=== PATIENT | male | born 1955 | race Caucasian/White ===

== ENCOUNTER 2019-02-13 16:05 | Inpatient (IN) | payer MEDICARE, OTHER ==
[~2019-02-13] VITALS: Ht 162.6 cm; Wt 59.0 kg
[2019-02-13] MEDS ORDERED: ACETAMINOPHEN ES 500 MG TABLET ONE (17:21)
[2019-02-13] MEDS ORDERED: ACETAMINOPHEN ES 500 MG TABLET PO ONE (17:30)
[2019-02-13 17:45] VITALS: BP 150/94
[2019-02-13] MEDS ORDERED: BLOOD SUGAR DIAGNOSTIC 1 EACH STRIP VI ONE (18:15)
[2019-02-13] MEDS ORDERED: INFLUENZA VACCINE 2019-2020 0.5 ML DISP.SYRIN IM ONE (19:00)
[2019-02-13] MEDS ORDERED: PNEUMOCOCCAL 23-VAL P-SAC VAC 0.5 ML VIAL IM ONE (19:00)
[2019-02-13 20:06] VITALS: BP 162/98
[2019-02-13] MEDS: LORAZEPAM 0.5 MG TABLET PO PRN (20:37)
[2019-02-13] MEDS ORDERED: MAGNESIUM HYDROXIDE 30 ML LIQUID UDC PO PRN (20:45)
[2019-02-13] MEDS ORDERED: ACETAMINOPHEN 650 MG/20.3 ML LIQUID UDC GT PRN (20:45)
[2019-02-13 22:07] VITALS: BP 131/72
[2019-02-14] MEDS: LORAZEPAM 0.5 MG TABLET PO PRN (04:02)
[2019-02-14] MEDS: ACETAMINOPHEN 325 MG TABLET PO PRN ×3 (04:02→21:09)
[2019-02-14 07:41] LABS: CREATININE 0.9 mg/dL (0.6-1.3); POTASSIUM 3.7 mmol/L (3.5-5.1); TOTAL PROTEIN, SERUM 7.4 g/dL (6.4-8.2)
[2019-02-14 07:54] VITALS: BP 120/75
[2019-02-14] MEDS ORDERED: NICOTINE 21 MG/24HR PATCH TD SCH (09:00)
[2019-02-14] MEDS: NICOTINE 14 MG/24HR PATCH TD SCH ×2 (10:28→10:32)
[2019-02-14] MEDS ORDERED: SERTRALINE HCL 50 MG TABLET PO SCH (13:00)
[2019-02-14] MEDS: risperiDONE 0.25 MG TABLET PO SCH ×2 (14:04→17:28)
[2019-02-14] MEDS: GABAPENTIN 100 MG CAPSULE PO SCH ×2 (14:04→17:28)
[2019-02-14] MEDS ORDERED: OLANZAPINE 10 MG VIAL IM ONE (14:45)
[2019-02-14 17:21] VITALS: BP 115/68
[2019-02-14 20:34] VITALS: BP 139/76
[2019-02-14] MEDS: TEMAZEPAM 7.5 MG CAPSULE PO PRN (21:09)
[2019-02-15] MEDS: LORAZEPAM 0.5 MG TABLET PO PRN ×2 (03:27→20:30)
[2019-02-15] MEDS: ACETAMINOPHEN 325 MG TABLET PO PRN (03:27)
[2019-02-15 07:30] VITALS: BP 135/69
[2019-02-15 07:52] LABS: BILIRUBIN,DIRECT 0.2 mg/dL (0.0-0.2); BILIRUBIN,TOTAL 0.6 mg/dL (0.2-1.0); TOTAL PROTEIN, SERUM 6.9 g/dL (6.4-8.2)
[2019-02-15 08:00] LABS: THYROID STIMULATING HORMONE 1.244 mIU/mL (0.358-3.740)
[2019-02-15] MEDS: GABAPENTIN 100 MG CAPSULE PO SCH (09:13)
[2019-02-15] MEDS: risperiDONE 0.25 MG TABLET PO SCH ×3 (09:13→16:42)
[2019-02-15] MEDS: NICOTINE 14 MG/24HR PATCH TD SCH (09:16)
[2019-02-15] MEDS: GABAPENTIN 300 MG CAPSULE PO SCH ×2 (12:50→16:42)
[2019-02-15] MEDS ORDERED: GABAPENTIN 100 MG CAPSULE PO SCH (13:00)
[2019-02-15 15:56] VITALS: BP 136/76
[2019-02-15] MEDS: HYDROCODONE/APAP 5-325MG TABLET PO PRN (18:17)
[2019-02-15 20:15] VITALS: BP 135/81
[2019-02-15] MEDS: TEMAZEPAM 7.5 MG CAPSULE PO PRN (21:38)
[2019-02-16 07:30] VITALS: BP 126/91
[2019-02-16 08:07] LABS: *BILIRUBIN,URIN NEGATIVE (NEGATIVE); *BLOOD, URINE 2+ (NEGATIVE); *CLARITY,URINE CLEAR (CLEAR); *COLOR,URINE YELLOW (YELLOW); *KETONES,URINE NEGATIVE (NEGATIVE); *UROBILINOGEN,URINE 0.2 E.U./dl (NORMAL); LEUKOCYTE ESTERASE ,URINE NEGATIVE (NEGATIVE); NITRITE, URINE NEGATIVE (NEGATIVE); PH,URINE 5.5 (5.0-8.0); UGLUCOSE NEGATIVE (NEGATIVE)
[2019-02-16 08:18] LABS: BACTERIA,URINE NONE SEEN /HPF (NONE SEEN); SQUAMOUS EPITHELIAL CELL,UR FEW /HPF (NONE SEEN); WBC,URINE NONE SEEN /HPF (0-3)
[2019-02-16] MEDS: GABAPENTIN 300 MG CAPSULE PO SCH ×3 (08:45→16:30)
[2019-02-16] MEDS: risperiDONE 0.25 MG TABLET PO SCH ×3 (08:45→16:30)
[2019-02-16] MEDS: NICOTINE 14 MG/24HR PATCH TD SCH (08:49)
[2019-02-16 16:56] VITALS: BP 132/81
[2019-02-16 20:15] VITALS: BP 135/84
[2019-02-16] MEDS: TEMAZEPAM 7.5 MG CAPSULE PO PRN (22:27)
[2019-02-17] MEDS: LORAZEPAM 0.5 MG TABLET PO PRN (03:22)
[2019-02-17 07:30] VITALS: BP 140/80
[2019-02-17] MEDS: NICOTINE 14 MG/24HR PATCH TD SCH (08:20)
[2019-02-17] MEDS: GABAPENTIN 300 MG CAPSULE PO SCH ×3 (08:20→16:27)
[2019-02-17] MEDS: risperiDONE 0.5 MG TABLET PO SCH ×3 (08:20→16:27)
[2019-02-17] MEDS ORDERED: risperiDONE 0.25 MG TABLET PO SCH (09:00)
[2019-02-17 16:06] VITALS: BP 148/88
[2019-02-17 20:00] VITALS: BP 148/88
[2019-02-17] MEDS: TEMAZEPAM 7.5 MG CAPSULE PO PRN (21:32)
[2019-02-17] MEDS: ACETAMINOPHEN 325 MG TABLET PO PRN (21:32)
[2019-02-18] MEDS: LORAZEPAM 0.5 MG TABLET PO PRN (01:21)
[2019-02-18 08:06] VITALS: BP 150/88
[2019-02-18] MEDS: GABAPENTIN 300 MG CAPSULE PO SCH ×3 (08:31→16:46)
[2019-02-18] MEDS: risperiDONE 0.5 MG TABLET PO SCH ×3 (08:31→16:46)
[2019-02-18] MEDS: NICOTINE 21 MG/24HR PATCH TD SCH (08:32)
[2019-02-18] MEDS ORDERED: NICOTINE 14 MG/24HR PATCH TD SCH (09:00)
[2019-02-18] MEDS: MAG HYDROX/AL HYDROX/SIMETH 30 ML LIQUID UDC PO PRN (15:29)
[2019-02-18 15:56] VITALS: BP 156/86
[2019-02-18 20:00] VITALS: BP 123/84
[2019-02-18] MEDS: TEMAZEPAM 7.5 MG CAPSULE PO PRN (20:58)
[2019-02-18] MEDS: ACETAMINOPHEN 325 MG TABLET PO PRN (20:59)
[2019-02-19 07:30] VITALS: BP 147/79
[2019-02-19] MEDS: GABAPENTIN 300 MG CAPSULE PO SCH ×3 (08:56→16:08)
[2019-02-19] MEDS: NICOTINE 21 MG/24HR PATCH TD SCH (08:56)
[2019-02-19] MEDS: risperiDONE 0.5 MG TABLET PO SCH ×3 (08:56→16:08)
[2019-02-19 16:00] VITALS: BP 138/87
[2019-02-19] MEDS: HYDROCODONE/APAP 5-325MG TABLET PO PRN (19:45)
[2019-02-19 20:23] VITALS: BP 146/85
[2019-02-19] MEDS: TEMAZEPAM 7.5 MG CAPSULE PO PRN (22:54)
[2019-02-20 07:30] VITALS: BP 150/92
[2019-02-20] MEDS: GABAPENTIN 300 MG CAPSULE PO SCH ×3 (08:19→16:04)
[2019-02-20] MEDS: risperiDONE 0.5 MG TABLET PO SCH ×3 (08:19→16:04)
[2019-02-20] MEDS: NICOTINE 21 MG/24HR PATCH TD SCH (08:19)
[2019-02-20 09:09] LABS: ALANINE AMINOTRANSFERASE 87 U/L (16-63); ALKALINE PHOSPHATASE 133 U/L (50-136); ASPARTATE AMINOTRANSFERASE 60 U/L (15-37); BILIRUBIN,TOTAL 0.9 mg/dL (0.2-1.0); CARBON DIOXIDE 28 mmol/L (21-32); CHLORIDE 104 mmol/L (98-107); CREATININE 0.6 mg/dL (0.6-1.3); GLUCOSE 87 mg/dL (74-106); POTASSIUM 3.8 mmol/L (3.5-5.1); TOTAL PROTEIN, SERUM 7.8 g/dL (6.4-8.2); UREA NITROGEN, BLOOD 11 mg/dL (7-18)
[2019-02-20] MEDS: ACETAMINOPHEN 325 MG TABLET PO PRN (15:51)
[2019-02-20 15:54] VITALS: BP 131/80
[2019-02-20 20:49] VITALS: BP 116/79
[2019-02-20] MEDS: HYDROCODONE/APAP 5-325MG TABLET PO PRN (23:00)
[2019-02-21] MEDS: MAG HYDROX/AL HYDROX/SIMETH 30 ML LIQUID UDC PO PRN (02:10)
[2019-02-21 08:04] VITALS: BP 155/79
[2019-02-21] MEDS: GABAPENTIN 300 MG CAPSULE PO SCH ×3 (08:11→16:57)
[2019-02-21] MEDS: NICOTINE 21 MG/24HR PATCH TD SCH (08:11)
[2019-02-21] MEDS: risperiDONE 0.5 MG TABLET PO SCH ×3 (08:12→16:57)
[2019-02-21 10:07] LABS: *BILIRUBIN,URIN NEGATIVE (NEGATIVE); *CLARITY,URINE CLEAR (CLEAR); *COLOR,URINE YELLOW (YELLOW); *KETONES,URINE NEGATIVE (NEGATIVE); *UROBILINOGEN,URINE 0.2 E.U./dl (NORMAL); LEUKOCYTE ESTERASE ,URINE NEGATIVE (NEGATIVE); NITRITE, URINE NEGATIVE (NEGATIVE); UGLUCOSE NEGATIVE (NEGATIVE)
[2019-02-21 10:09] LABS: *BLOOD, URINE TRACE INTACT (NEGATIVE)
[2019-02-21 10:16] LABS: BACTERIA,URINE NONE SEEN /HPF (NONE SEEN); RBC,URINE 0-3 /HPF (0-3); SQUAMOUS EPITHELIAL CELL,UR NONE SEEN /HPF (NONE SEEN); WBC,URINE 0-3 /HPF (0-3)
[2019-02-21 16:59] VITALS: BP 147/81
[2019-02-21] MEDS: ACETAMINOPHEN 325 MG TABLET PO PRN (17:06)
[2019-02-21 20:12] VITALS: BP 129/81
[2019-02-22] MEDS: HYDROCODONE/APAP 5-325MG TABLET PO PRN ×2 (02:20→20:09)
[2019-02-22] MEDS: LORAZEPAM 0.5 MG TABLET PO PRN (02:45)
[2019-02-22 07:30] VITALS: BP 135/80
[2019-02-22] MEDS: GABAPENTIN 300 MG CAPSULE PO SCH ×3 (08:07→16:35)
[2019-02-22] MEDS: NICOTINE 21 MG/24HR PATCH TD SCH (08:07)
[2019-02-22] MEDS: risperiDONE 0.5 MG TABLET PO SCH ×3 (08:07→16:35)
[2019-02-22 08:09] LABS: BASOPHILS # (AUTO) 0.1 K/uL (0.0-8.0); BASOPHILS % (AUTO) 0.5 % (0.0-2.0); EOSINOPHILS # (AUTO) 0.2 K/uL (0.0-0.7); MEAN CORPUSCULAR VOLUME 96.3 fL (73.0-96.2)
[2019-02-22 08:18] LABS: BILIRUBIN,TOTAL 0.8 mg/dL (0.2-1.0); CREATININE 0.8 mg/dL (0.6-1.3); POTASSIUM 3.6 mmol/L (3.5-5.1); TOTAL PROTEIN, SERUM 8.1 g/dL (6.4-8.2)
[2019-02-22 08:21] LABS: EOSINOPHILS % (AUTO) 1.9 % (0.0-7.0); HEMOGLOBIN 13.6 g/dL (12.5-16.3); LYMPHOCYTES # (AUTO) 2.4 K/uL (20.0-40.0); LYMPHOCYTES % (AUTO) 22.2 % (20.5-51.5); MEAN CORPUSCULAR HEMOGLOBIN 32.6 uug (23.8-33.4); MEAN CORPUSCULAR HGB CONC 34 g/dL (32.5-36.3); MONOCYTES # (AUTO) 1.3 K/uL (2.0-10.0); MONOCYTES % (AUTO) 12.3 % (0.0-11.0); NEUTROPHILS # (AUTO) 6.9 K/uL (1.8-8.9); NEUTROPHILS % (AUTO) 63.1 % (38.5-71.5); RED BLOOD CELL COUNT(AUTO) 4.16 MIL/uL (4.06-5.63)
[2019-02-22 08:38] LABS: PLATELET COUNT (AUTO) 36 K/uL (152-348)
[2019-02-22 10:36] LABS: BAND % (MANUAL) 1 % (0-10); EOSINOPHILS % (MANUAL) 2 % (0-8); LYMPHOCYTES % (MANUAL) 26 % (20-40); MONOCYTES % (MANUAL) 6 % (2-10); NEUTROPHILS % (MANUAL) 65 % (42-75)
[2019-02-22] MEDS ORDERED: TEMAZEPAM 7.5 MG CAPSULE PO PRN (16:00)
[2019-02-22] MEDS ORDERED: TEMAZEPAM 15 MG CAPSULE PO PRN (16:15)
[2019-02-22 16:51] VITALS: BP 108/60
[2019-02-22 20:19] VITALS: BP 140/81
[2019-02-23] MEDS: LORAZEPAM 0.5 MG TABLET PO PRN ×2 (00:05→08:13)
[2019-02-23 07:30] VITALS: BP 157/96
[2019-02-23] MEDS: risperiDONE 0.5 MG TABLET PO SCH (08:13)
[2019-02-23] MEDS: NICOTINE 21 MG/24HR PATCH TD SCH (08:14)
[2019-02-23] MEDS: GABAPENTIN 300 MG CAPSULE PO SCH (08:14)
[2019-02-23] MEDS: HYDROCODONE/APAP 5-325MG TABLET PO PRN (08:14)
[2019-02-23 10:29] LABS: BILIRUBIN,DIRECT 0.2 mg/dL (0.0-0.2); BILIRUBIN,TOTAL 0.6 mg/dL (0.2-1.0); MAGNESIUM 1.9 mg/dL (1.8-2.4); PHOSPHOROUS 3.3 mg/dL (2.5-4.9); POTASSIUM 3.8 mmol/L (3.5-5.1); TOTAL PROTEIN, SERUM 7.5 g/dL (6.4-8.2)
[2019-02-23 10:39] LABS: BASOPHILS # (AUTO) 0.1 K/uL (0.0-8.0); BASOPHILS % (AUTO) 0.8 % (0.0-2.0); EOSINOPHILS # (AUTO) 0.2 K/uL (0.0-0.7); EOSINOPHILS % (AUTO) 2.1 % (0.0-7.0); HEMOGLOBIN 14.1 g/dL (12.5-16.3); LYMPHOCYTES # (AUTO) 1.5 K/uL (20.0-40.0); MEAN CORPUSCULAR HEMOGLOBIN 32.5 uug (23.8-33.4); MEAN CORPUSCULAR HGB CONC 34 g/dL (32.5-36.3); MEAN CORPUSCULAR VOLUME 94.7 fL (73.0-96.2); MONOCYTES # (AUTO) 0.8 K/uL (2.0-10.0); MONOCYTES % (AUTO) 10.5 % (0.0-11.0); NEUTROPHILS # (AUTO) 5.2 K/uL (1.8-8.9); NEUTROPHILS % (AUTO) 66.6 % (38.5-71.5); RED BLOOD CELL COUNT(AUTO) 4.33 MIL/uL (4.06-5.63); WHITE BLOOD COUNT (AUTO) 7.7 K/uL (3.6-10.2)
[2019-02-23 10:43] LABS: PLATELET COUNT (AUTO) 16 K/uL (152-348)
[2019-02-23 11:06] LABS: *RHEUMATOID FACTOR SCREEN NEGATIVE (NEGATIVE)
[2019-02-23 11:34] LABS: BAND % (MANUAL) 2 % (0-10); EOSINOPHILS % (MANUAL) 1 % (0-8); LYMPHOCYTES % (MANUAL) 15 % (20-40); MONOCYTES % (MANUAL) 14 % (2-10); NEUTROPHILS % (MANUAL) 68 % (42-75)
[2019-02-23] MEDS ORDERED: GABA-534 PO (13:42)
[2019-02-23] MEDS ORDERED: HYDR-3326 PO (13:42)
[2019-02-23] MEDS ORDERED: NICO-672 TD (13:42)
[2019-02-23] MEDS ORDERED: LORA-258 PO (13:42)
[2019-02-23] MEDS ORDERED: TEMA15CA PO (13:42)
[2019-02-24 09:06] LABS: *IMMUNOGLOBULIN G, SERUM 1792 mg/dL (700-1600); IMMUNOGLOBULIN A, SERUM 336 mg/dL (61-437); IMMUNOGLOBULIN M, SERUM 220 mg/dL (20-172)
[2019-02-24 11:06] LABS: HEPATITIS B SURFACE AB Non Reactive (.); HEPATITIS B SURFACE AG Negative (Negative)
[2019-02-25 12:06] LABS: A/G RATIO 0.8 (0.7-1.7); ALPHA-1-GLOBULIN 0.3 g/dL (0.0-0.4); ALPHA-2-GLOBULIN 0.8 g/dL (0.4-1.0); GAMMA GLOBULIN 1.7 g/dL (0.4-1.8); GLOBULIN, TOTAL 3.8 g/dL (2.2-3.9); M-SPIKE Not Observed g/dL (Not Observed)
[2019-02-26 15:09] LABS: *ANTI-SCLERODERMA-70 AB <0.2 AI (0.0-0.9); *SJOGREN'S ANTI-SS-A <0.2 AI (0.0-0.9); *SJOGREN'S ANTI-SS-B <0.2 AI (0.0-0.9); *SMITH ANTIBODIES <0.2 AI (0.0-0.9); ANTI-DNA(DS) AB, QN 1 IU/mL (0-9)
== END 2019-02-23 12:02 | disposition short-term general hospital (02) | DRG 885 ==
LOC: ER 16:07 → GPS 17:29
PROVIDERS: ADMIT Psychiatry & Neurology Psychosomatic Medicine; ATTEND Student in an Organized Health Care Education/Training Program
DX: F25.0 Schizoaffective disorder, bipolar type (principal); E44.1 Mild protein-calorie malnutrition; F17.210 Nicotine dependence, cigarettes, uncomplicated; Z59.0 Homelessness; F41.9 Anxiety disorder, unspecified; Z87.820 Personal history of traumatic brain injury; F09 Unspecified mental disorder due to known physiological condition; S09.90XS Unspecified injury of head, sequela; V49.9XXS Car occupant (driver) (passenger) injured in unspecified traffic accident, sequela; F10.11 Alcohol abuse, in remission; F11.90 Opioid use, unspecified, uncomplicated; Y90.9 Presence of alcohol in blood, level not specified; K70.9 Alcoholic liver disease, unspecified; D72.829 Elevated white blood cell count, unspecified; Z86.19 Personal history of other infectious and parasitic diseases; D69.59 Other secondary thrombocytopenia; G89.29 Other chronic pain; G47.00 Insomnia, unspecified
CPT/HCPCS: 36415; 70030-TC; 71045; 82747; 82784; 83735; 84100; 84155; 84165; 84443; 85014; 85025; 85610; 85651; 85730; 86038; 86334; 86430; 86706; 86803; 87086; 87340; 87806; 90686; 90732; 93005; A4663; A9150

== ENCOUNTER 2019-02-23 13:10 | Inpatient (IN) | payer MEDICARE, OTHER ==
[2019-02-23] MEDS ORDERED: NICO-672 TD (13:42)
[2019-02-23] MEDS ORDERED: TEMA15CA PO (13:42)
[2019-02-23] MEDS ORDERED: LORA-258 PO (13:42)
[2019-02-23] MEDS ORDERED: HYDR-3326 PO (13:42)
[2019-02-23] MEDS ORDERED: GABA-534 PO (13:42)
[2019-02-23] MEDS ORDERED: Z GUARD REMEDY PASTE 57 GM TUBE TOP PRN (18:15)
[2019-02-23] MEDS ORDERED: MAGNESIUM HYDROXIDE 30 ML LIQUID UDC PO PRN (18:15)
--- NOTE | 2019-02-23 20:00 | NUR ---
Patient received from MHU in stable condition. Patient with stable vital signs; Patient transferred down due to thrombocytopenia; placed orders for platelets ; lab unable to draw two type n screens due to needing two separate shelf stocker;oncoming nurse notified;patient with 1:1 sitter; due .
[2019-02-23] MEDS: methylPREDNISolone SOD SUCC 125 MG/2 ML VIAL IV SCH (22:01)
--- NOTE | 2019-02-23 22:15 | NUR ---
Dr. Casey signed consent for patients platelet transfusion. no next of kin available and patient is confused unable to sign.
[2019-02-23] MEDS: ACETAMINOPHEN 325 MG TABLET PO PRN (23:27)
[2019-02-24] VITALS (10 sets, daily range): BP systolic 125–165; BP diastolic 69–96
[2019-02-24] MEDS: ONDANSETRON 4 MG/2 ML VIAL IV PRN ×2 (01:16→22:31)
--- NOTE | 2019-02-24 01:17 | NUR ---
patient infused 1 unit of platelets with no reactions. no signs of acute distress and v/s stable throughout shift. will continue to monitor.
[2019-02-24] MEDS: ZOLPIDEM 5 MG TABLET PO PRN ×2 (01:30→22:16)
--- NOTE | 2019-02-24 04:58 | NUR ---
patient received lying in bed and v/s stable throughout shift. no signs of acute distress noted. 1:1 sitter at bedside for safety and legal status. no SI/HI on my shift. pleasant and cooperative with medical treatment. ambien administered for sleep. tolerated well. will continue to monitor and endorse care accordingly to morning nurse.
--- NOTE | 2019-02-24 05:03 | NUR ---
will endorse to morning nurse to ask sign consent form for bone marrow biopsy due to patient confusion. requested biopsy kit from Dr. Figueroa next to bedside.
[2019-02-24 06:39] LABS: BASOPHILS % (AUTO) 0.1 % (0.0-2.0); HEMATOCRIT 38.7 % (36.7-47.1); HEMOGLOBIN 13.2 g/dL (12.5-16.3); LYMPHOCYTES # (AUTO) 0.7 K/uL (20.0-40.0); LYMPHOCYTES % (AUTO) 12.3 % (20.5-51.5); MEAN CORPUSCULAR HEMOGLOBIN 32.6 uug (23.8-33.4); MEAN CORPUSCULAR HGB CONC 34 g/dL (32.5-36.3); MEAN CORPUSCULAR VOLUME 95.7 fL (73.0-96.2); MONOCYTES # (AUTO) 0.1 K/uL (2.0-10.0); MONOCYTES % (AUTO) 0.9 % (0.0-11.0); NEUTROPHILS % (AUTO) 86.7 % (38.5-71.5); PLATELET COUNT (AUTO) 125 K/uL (152-348); RED BLOOD CELL COUNT(AUTO) 4.05 MIL/uL (4.06-5.63); WHITE BLOOD COUNT (AUTO) 5.7 K/uL (3.6-10.2)
[2019-02-24 06:57] LABS: MAGNESIUM 1.9 mg/dL (1.8-2.4); PHOSPHOROUS 2.4 mg/dL (2.5-4.9); POTASSIUM 4.2 mmol/L (3.5-5.1)
--- NOTE | 2019-02-24 07:30 | NUR ---
Patient resting in bed with sitter at bedside ; patient with stable vital signs ; patient will continue to monitored.
[2019-02-24] MEDS: risperiDONE 0.25 MG TABLET PO SCH ×3 (09:10→18:20)
[2019-02-24] MEDS: methylPREDNISolone SOD SUCC 125 MG/2 ML VIAL IV SCH (09:10)
[2019-02-24] MEDS: ACETAMINOPHEN 325 MG TABLET PO PRN ×2 (10:17→22:16)
--- NOTE | 2019-02-24 14:46 | NUR ---
Unable to perform Ultrasound Abdomen. The patient is not stable. Abraham baird was called in.
[2019-02-24] MEDS ORDERED: NEUTRA PHOS PACKET PO ONE (15:15)
[2019-02-24] MEDS ORDERED: MORPHINE SULFATE 2 MG/1 ML DISP.SYRIN IV ONE (15:30)
[2019-02-24] MEDS ORDERED: LORAZEPAM 1 MG TABLET PO ONE (15:30)
[2019-02-24] MEDS ORDERED: LIDOCAINE HCL 1% 20 ML VIAL IJ PRN (15:32)
[2019-02-24] MEDS: NICOTINE 14 MG/24HR PATCH TD SCH (15:40)
[2019-02-24 18:03] LABS: BASOPHILS # (AUTO) 0.1 K/uL (0.0-8.0); BASOPHILS % (AUTO) 0.5 % (0.0-2.0); HEMATOCRIT 38.2 % (36.7-47.1); HEMOGLOBIN 12.9 g/dL (12.5-16.3); LYMPHOCYTES # (AUTO) 0.6 K/uL (20.0-40.0); LYMPHOCYTES % (AUTO) 6.4 % (20.5-51.5); MEAN CORPUSCULAR HEMOGLOBIN 32.4 uug (23.8-33.4); MEAN CORPUSCULAR HGB CONC 34 g/dL (32.5-36.3); MEAN CORPUSCULAR VOLUME 95.7 fL (73.0-96.2); MONOCYTES # (AUTO) 0.2 K/uL (2.0-10.0); MONOCYTES % (AUTO) 1.9 % (0.0-11.0); NEUTROPHILS # (AUTO) 9.2 K/uL (1.8-8.9); NEUTROPHILS % (AUTO) 91.2 % (38.5-71.5); RED BLOOD CELL COUNT(AUTO) 3.99 MIL/uL (4.06-5.63); WHITE BLOOD COUNT (AUTO) 10.1 K/uL (3.6-10.2)
[2019-02-24 19:32] LABS: BAND % (MANUAL) 2 % (0-10); LYMPHOCYTES % (MANUAL) 5 % (20-40); MONOCYTES % (MANUAL) 1 % (2-10); NEUTROPHILS % (MANUAL) 92 % (42-75); PLATELET COUNT (AUTO) 240 K/uL (152-348)
--- NOTE | 2019-02-24 19:42 | NUR ---
Patient had moments of mild agitation through out shift; patient medication compliant ; patient had bone marrow aspiration done by MD ayala ; patient okay to sign consent per attending MD; patient compliant through out procedure; patient with 1:1 and had to be redirected multiple times.Report given to oncoming nurse.
[2019-02-24] MEDS: risperiDONE 1 MG TABLET PO SCH (21:07)
[2019-02-25 05:42] VITALS: BP 123/62
--- NOTE | 2019-02-25 06:35 | NUR ---
patient received at bed with 1:1 sitter at bedside for legal status. no signs of acute distress and v/s stable throughout shift. safety and comfort measures provided at all times. bed in lowest position, side rails up x2 and bed alarm on. mild agitation on my shift. c/o headache and tylenol administered. afebrile during shift. will continue to monitor and endorse care to oncoming AM nurse.
[2019-02-25 06:55] LABS: CREATININE 0.9 mg/dL (0.6-1.3); PHOSPHOROUS 3.1 mg/dL (2.5-4.9); POTASSIUM 3.9 mmol/L (3.5-5.1)
[2019-02-25 07:28] VITALS: BP 126/72
[2019-02-25 07:28] LABS: BASOPHILS % (AUTO) 0.2 % (0.0-2.0); LYMPHOCYTES # (AUTO) 1.7 K/uL (20.0-40.0); LYMPHOCYTES % (AUTO) 13.7 % (20.5-51.5); MEAN CORPUSCULAR HEMOGLOBIN 32.6 uug (23.8-33.4); MEAN CORPUSCULAR HGB CONC 33 g/dL (32.5-36.3); MEAN CORPUSCULAR VOLUME 97.9 fL (73.0-96.2); MONOCYTES % (AUTO) 7.7 % (0.0-11.0); NEUTROPHILS # (AUTO) 9.7 K/uL (1.8-8.9); NEUTROPHILS % (AUTO) 78.4 % (38.5-71.5); RED BLOOD CELL COUNT(AUTO) 3.98 MIL/uL (4.06-5.63); WHITE BLOOD COUNT (AUTO) 12.4 K/uL (3.6-10.2)
[2019-02-25] MEDS: risperiDONE 1 MG TABLET PO SCH (09:02)
[2019-02-25] MEDS: methylPREDNISolone SOD SUCC 125 MG/2 ML VIAL IV SCH (09:02)
[2019-02-25] MEDS: NICOTINE 14 MG/24HR PATCH TD SCH (09:02)
[2019-02-25 09:47] LABS: PLATELET COUNT (AUTO) 109 K/uL (152-348)
[2019-02-25 11:41] VITALS: BP 140/71
[2019-02-25 15:05] VITALS: BP 129/81
--- NOTE | 2019-02-25 16:56 | NUR ---
Pt. discharged to MHU in stable condition. Walked down by sitter and sap security consultant. IV removed. All discharge paperwork signed by 2 nurses as pt. refused to sign. No belongings with pt. discharged back to MHU with no belongings. All medication given. Gave report to Lyndsey.
== END 2019-02-25 17:21 | DRG 813 ==
LOC: MEDSURG3 13:10
PROVIDERS: ADMIT Nurse Practitioner Acute Care; ATTEND Nurse Practitioner Acute Care
PROC: 07DR3ZX Extraction of Iliac Bone Marrow, Percutaneous Approach, Diagnostic (ICD-10-PCS; principal; 2019-02-24)
PROC: 30233R1 Transfusion of Nonautologous Platelets into Peripheral Vein, Percutaneous Approach (ICD-10-PCS; 2019-02-24)
DX: D69.59 Other secondary thrombocytopenia (principal); E44.1 Mild protein-calorie malnutrition; K70.10 Alcoholic hepatitis without ascites; B19.20 Unspecified viral hepatitis C without hepatic coma; Y90.9 Presence of alcohol in blood, level not specified; F25.9 Schizoaffective disorder, unspecified; Z59.0 Homelessness; F17.200 Nicotine dependence, unspecified, uncomplicated; F41.9 Anxiety disorder, unspecified; G89.21 Chronic pain due to trauma; M54.9 Dorsalgia, unspecified; T14.90XS Injury, unspecified, sequela; V49.9XXS Car occupant (driver) (passenger) injured in unspecified traffic accident, sequela; F10.11 Alcohol abuse, in remission
CPT/HCPCS: 36415; 70030-TC; 76705; 83735; 84100; 85025; 86677; 86850; 86900; 86901; A4663; G0378; J2270; J2405; J2930; J3490; J7040; P9035-BL

== ENCOUNTER 2019-02-25 17:57 | Inpatient (IN) | payer MEDICARE, OTHER ==
[~2019-02-25] VITALS: Ht 167.6 cm; Wt 60.3 kg
[~2019-02-25 17:57] MED LIST: GABA-534 PO; HYDR-3326 PO; LORA-258 PO; NICO-672 TD; TEMA15CA PO
--- NOTE | 2019-02-25 18:09 | NUR ---
Patient admitted to GPS on a 5250 hold for GD from Med Surg Unit. Patient transported with security and nursing staff, brought in by wheelchair. Upon admission, patient oriented to the unit rules and policies, educated about legal hold status, he is able to verbalize understanding of education. Patient is alert and oriented to person, place, and time. Vital signs taken and patient weighed. Patient belongings inventoried and contraband removed. Patient provided with patient's right booklet. Upon [id number] evaluation, patient is uncooperative, irritable, and angry. He is refusing to cooperative with admission and is refusing to sign admission paperwork. Patient states that he is angry for being admitted and "I'm at my brink." Patient provided with redirection and diversional activity.
[2019-02-25] MEDS ORDERED: MAGNESIUM HYDROXIDE 30 ML LIQUID UDC PO PRN (18:15)
[2019-02-25 20:19] VITALS: BP 110/66
[2019-02-26] MEDS: TEMAZEPAM 7.5 MG CAPSULE PO PRN (00:14)
[2019-02-26 07:22] LABS: BASOPHILS % (AUTO) 0.2 % (0.0-2.0); HEMATOCRIT 37.3 % (36.7-47.1); HEMOGLOBIN 12.6 g/dL (12.5-16.3); LYMPHOCYTES # (AUTO) 2.5 K/uL (20.0-40.0); LYMPHOCYTES % (AUTO) 23.8 % (20.5-51.5); MEAN CORPUSCULAR HEMOGLOBIN 32.7 uug (23.8-33.4); MEAN CORPUSCULAR HGB CONC 34 g/dL (32.5-36.3); MONOCYTES % (AUTO) 9.7 % (0.0-11.0); NEUTROPHILS # (AUTO) 6.8 K/uL (1.8-8.9); NEUTROPHILS % (AUTO) 66.3 % (38.5-71.5); RED BLOOD CELL COUNT(AUTO) 3.85 MIL/uL (4.06-5.63); WHITE BLOOD COUNT (AUTO) 10.3 K/uL (3.6-10.2)
[2019-02-26 07:38] LABS: BILIRUBIN,TOTAL 0.4 mg/dL (0.2-1.0); CREATININE 0.9 mg/dL (0.6-1.3); POTASSIUM 3.7 mmol/L (3.5-5.1)
[2019-02-26 07:46] LABS: PLATELET COUNT (AUTO) 179 K/uL (152-348)
[2019-02-26 08:02] VITALS: BP 149/89
[2019-02-26] MEDS: NICOTINE 21 MG/24HR PATCH TD SCH (08:08)
[2019-02-26] MEDS: predniSONE 20 MG TABLET PO SCH (08:08)
--- NOTE | 2019-02-26 10:56 | NUR ---
Social Work Note/Initial Discharge Plan: Patient is currently homeless and will need a penitentiary placement upon discharge. Pt will discharged back to [facility] [place] [address];([phone]). District Wire Chief will continue to work with patient and MD to ensure a safe and proper discharge plan.
--- NOTE | 2019-02-26 12:10 | NUR ---
Social Work Note/Substance Abuse Intervention: Patient was provided with a brief substance abuse intervention and referred to [facility] , [facility] , and [facility] .
[2019-02-26] MEDS: GABAPENTIN 100 MG CAPSULE PO SCH ×2 (12:26→16:37)
--- NOTE | 2019-02-26 12:27 | NUR ---
Social Work Note/Family Contact: Patient does not have any family contacts.
[2019-02-26] MEDS: BLOOD SUGAR DIAGNOSTIC 1 EACH STRIP VI SCH (16:24)
[2019-02-26 16:57] VITALS: BP 145/81
[2019-02-26] MEDS ORDERED: GABAPENTIN 300 MG CAPSULE PO SCH (17:00)
--- NOTE | 2019-02-26 18:02 | NUR ---
received Patient AOx2-3, compliant with medication, patient been asking for attention with staff, seen watching TV in the activity room, denies Si and Hi , will continue monitor
[2019-02-26 19:30] VITALS: BP 138/81
[2019-02-26] MEDS: HYDROCODONE/APAP 5-325MG TABLET PO PRN (20:04)
[2019-02-26] MEDS: MAG HYDROX/AL HYDROX/SIMETH 30 ML LIQUID UDC PO PRN (20:08)
[2019-02-26] MEDS ORDERED: OLANZAPINE 2.5 MG TABLET PO SCH (21:00)
[2019-02-27] MEDS: TEMAZEPAM 7.5 MG CAPSULE PO PRN ×2 (00:51→22:31)
[2019-02-27] MEDS: BLOOD SUGAR DIAGNOSTIC 1 EACH STRIP VI SCH (06:31)
[2019-02-27 07:23] LABS: BASOPHILS % (AUTO) 0.3 % (0.0-2.0); EOSINOPHILS % (AUTO) 0.1 % (0.0-7.0); HEMATOCRIT 41.1 % (36.7-47.1); HEMOGLOBIN 13.9 g/dL (12.5-16.3); LYMPHOCYTES % (AUTO) 34.4 % (20.5-51.5); MEAN CORPUSCULAR HGB CONC 34 g/dL (32.5-36.3); MEAN CORPUSCULAR VOLUME 94.9 fL (73.0-96.2); MONOCYTES # (AUTO) 0.9 K/uL (2.0-10.0); MONOCYTES % (AUTO) 9.8 % (0.0-11.0); NEUTROPHILS # (AUTO) 4.9 K/uL (1.8-8.9); NEUTROPHILS % (AUTO) 55.4 % (38.5-71.5); PLATELET COUNT (AUTO) 106 K/uL (152-348); RED BLOOD CELL COUNT(AUTO) 4.33 MIL/uL (4.06-5.63); WHITE BLOOD COUNT (AUTO) 8.8 K/uL (3.6-10.2)
[2019-02-27 07:30] VITALS: BP 163/70
[2019-02-27 07:33] LABS: BILIRUBIN,TOTAL 0.7 mg/dL (0.2-1.0); CREATININE 0.9 mg/dL (0.6-1.3); POTASSIUM 3.8 mmol/L (3.5-5.1); TOTAL PROTEIN, SERUM 7.7 g/dL (6.4-8.2)
[2019-02-27] MEDS: NICOTINE 21 MG/24HR PATCH TD SCH (08:32)
[2019-02-27] MEDS: predniSONE 20 MG TABLET PO SCH (08:32)
[2019-02-27] MEDS: GABAPENTIN 100 MG CAPSULE PO SCH ×2 (08:32→12:58)
[2019-02-27] MEDS: HYDROCODONE/APAP 5-325MG TABLET PO PRN ×2 (12:06→22:30)
--- NOTE | 2019-02-27 14:25 | NUR ---
Firearms Report ([employer]): Brake Operator Helper completed and submitted a [employer] firearms report for 5250 grave disability certification. A copy of report has been placed in patient chart.
[2019-02-27] MEDS: ACETAMINOPHEN 325 MG TABLET PO PRN (14:44)
[2019-02-27] MEDS: LORAZEPAM 0.5 MG TABLET PO PRN ×2 (14:44→19:36)
[2019-02-27 15:32] VITALS: BP 160/99
[2019-02-27] MEDS: GABAPENTIN 300 MG CAPSULE PO SCH (16:33)
[2019-02-27] MEDS ORDERED: GABAPENTIN 100 MG CAPSULE PO SCH (17:00)
[2019-02-27] MEDS: METOPROLOL TARTRATE 25 MG TABLET PO SCH ×2 (17:26→20:05)
[2019-02-27 20:20] VITALS: BP 150/96
[2019-02-27] MEDS ORDERED: OLANZAPINE 2.5 MG TABLET PO SCH (21:00)
[2019-02-27] MEDS ORDERED: OLANZAPINE 5 MG TABLET PO SCH (21:00)
[2019-02-28] MEDS ORDERED: OLANZAPINE 10 MG VIAL IM ONE (00:45)
--- NOTE | 2019-02-28 02:30 | NUR ---
Chemical restraint note: Pt agitated, threatening staff, throwing objects, yelling, and screaming. All prn PO medication administered and ineffective. Pt refused redirection and remained abusive toward staff and the environment. Dr Morales notified of Pt behavior, Zyprexa 5mg IM ordered and administered with good effect. No hands on Pt during injection, no injuries sustained to staff or Pt. VS stable, Pt breathing even and unlabored. Resting comfortably in bed at this time.
[2019-02-28 07:30] VITALS: BP 152/89
[2019-02-28] MEDS: GABAPENTIN 300 MG CAPSULE PO SCH ×3 (10:12→17:36)
[2019-02-28] MEDS: METOPROLOL TARTRATE 25 MG TABLET PO SCH ×2 (10:13→20:55)
[2019-02-28] MEDS: predniSONE 20 MG TABLET PO SCH (10:14)
[2019-02-28] MEDS: NICOTINE 21 MG/24HR PATCH TD SCH (10:14)
[2019-02-28] MEDS: LORAZEPAM 0.5 MG TABLET PO PRN (10:19)
[2019-02-28 16:00] VITALS: BP 114/67
--- NOTE | 2019-02-28 20:00 | NUR ---
RECEIVED PATIENT IN THE DAY ROOM. HE IS NOTED A/O X2, FORGETFUL; HE CONTINUE EASILY IRRITABLE, HYPERVERBAL, NEEDY AND ATTENTION SEEKER. PT REQUIRED MULTIPLE REDIRECTION. PT IS REASSURED FOR HIS SAFETY. SAFETY AND FALL PRECAUTION IN PLACE. V/S STABLE. WILL CONTINUE TO MONITOR
[2019-02-28 20:24] VITALS: BP 164/88
[2019-02-28] MEDS: OLANZAPINE 5 MG TABLET PO SCH (20:55)
--- NOTE | 2019-03-01 05:01 | NUR ---
NSG/GPS PATIENT AGGRESSIVE, INCREASED AGITATION, IS THREATENING STAFF, VERBALLY ABUSIVE, DEMANDING WATER THEN GESTURING TO THROW THE CUP AT STAFF. PATIENT REQUIRES CONSTANT REDIRECTION, REQUESTING FOOD INCLUDING AFTER FOOD WAS GIVEN, PATIENT CLAIMING HE HAS NO RECOLLECTION OF EVER BEEN GIVEN ANYTHING.
[2019-03-01] MEDS: LORAZEPAM 0.5 MG TABLET PO PRN ×2 (05:10→13:47)
--- NOTE | 2019-03-01 05:15 | NUR ---
PATIENT CAME TO THE NURSING STATION IRRITABLE, LABILE, USING PROFANITIES. PT WAS REDIRECTED AND ATIVAN 0.5 MG WAS ALSO GIVEN. WILL CONTINUE TO MONITOR.
[2019-03-01 07:30] VITALS: BP 165/91
[2019-03-01] MEDS: METOPROLOL TARTRATE 25 MG TABLET PO SCH ×2 (08:24→20:32)
[2019-03-01] MEDS: GABAPENTIN 300 MG CAPSULE PO SCH ×3 (08:24→16:51)
[2019-03-01] MEDS: predniSONE 20 MG TABLET PO SCH (08:25)
[2019-03-01] MEDS: NICOTINE 21 MG/24HR PATCH TD SCH (08:25)
[2019-03-01 09:51] LABS: BASOPHILS % (AUTO) 0.3 % (0.0-2.0); EOSINOPHILS # (AUTO) 0.1 K/uL (0.0-0.7); EOSINOPHILS % (AUTO) 0.5 % (0.0-7.0); HEMATOCRIT 45.2 % (36.7-47.1); HEMOGLOBIN 15.1 g/dL (12.5-16.3); LYMPHOCYTES # (AUTO) 3.7 K/uL (20.0-40.0); LYMPHOCYTES % (AUTO) 32.6 % (20.5-51.5); MEAN CORPUSCULAR HEMOGLOBIN 32.3 uug (23.8-33.4); MEAN CORPUSCULAR HGB CONC 34 g/dL (32.5-36.3); MEAN CORPUSCULAR VOLUME 96.6 fL (73.0-96.2); MONOCYTES # (AUTO) 0.7 K/uL (2.0-10.0); MONOCYTES % (AUTO) 6.4 % (0.0-11.0); NEUTROPHILS # (AUTO) 6.9 K/uL (1.8-8.9); NEUTROPHILS % (AUTO) 60.2 % (38.5-71.5); RED BLOOD CELL COUNT(AUTO) 4.68 MIL/uL (4.06-5.63); WHITE BLOOD COUNT (AUTO) 11.4 K/uL (3.6-10.2)
[2019-03-01 10:00] LABS: BILIRUBIN,TOTAL 0.8 mg/dL (0.2-1.0); POTASSIUM 3.4 mmol/L (3.5-5.1); TOTAL PROTEIN, SERUM 8.3 g/dL (6.4-8.2)
[2019-03-01 10:37] LABS: PLATELET COUNT (AUTO) 189 K/uL (152-348)
[2019-03-01 10:49] LABS: EOSINOPHILS % (MANUAL) 1 % (0-8); LYMPHOCYTES % (MANUAL) 40 % (20-40); MONOCYTES % (MANUAL) 5 % (2-10); NEUTROPHILS % (MANUAL) 54 % (42-75)
[2019-03-01] MEDS: HYDROCODONE/APAP 5-325MG TABLET PO PRN ×2 (11:34→20:32)
[2019-03-01] MEDS: OLANZAPINE 2.5 MG TABLET PO SCH (12:26)
[2019-03-01] MEDS: ACETAMINOPHEN 325 MG TABLET PO PRN (13:47)
[2019-03-01] MEDS ORDERED: POTASSIUM CHLORIDE 10 MEQ TAB.PRT.SR PO ONE (14:15)
[2019-03-01 17:22] VITALS: BP 146/90
[2019-03-01] MEDS: OLANZAPINE 5 MG TABLET PO SCH (20:31)
[2019-03-01 20:57] VITALS: BP 156/98
[2019-03-01] MEDS: TEMAZEPAM 7.5 MG CAPSULE PO PRN (22:53)
[2019-03-02] MEDS: ACETAMINOPHEN 325 MG TABLET PO PRN (00:53)
[2019-03-02] MEDS: LORAZEPAM 0.5 MG TABLET PO PRN ×2 (00:53→07:16)
[2019-03-02] MEDS ORDERED: OLANZAPINE 10 MG VIAL IM ONE ×2 (01:30→09:45)
[2019-03-02] MEDS ORDERED: LORAZEPAM 2 MG/1 ML VIAL IM ONE ×2 (01:30→09:45)
--- NOTE | 2019-03-02 01:47 | NUR ---
Patient at nurses station, angry, demanding cigarettes, threatening to leave. Back and forth to room throwing paper bags filled with trash around. Unable to redirect patient or calm patient down. Dr. Alcala notified and orders received for Zyprexa 5 mg IM and Ativan 1 mg IM . Patient tolerated shot well. Patients respiratory rate even and unlabored. Monitoring closely for behavior and safety.
--- NOTE | 2019-03-02 06:14 | NUR ---
Patient stayed awake all night . 0 hours of sleep. Patient in room , going through belongings and opening and closing bedside drawers loudly. Refusing to go to to sleep or follow directions. Very paranoid and noncompliant. Hyperverbal . Continuing to monitor for safety.
[2019-03-02 07:20] LABS: BILIRUBIN,TOTAL 0.8 mg/dL (0.2-1.0); CREATININE 0.9 mg/dL (0.6-1.3); POTASSIUM 3.5 mmol/L (3.5-5.1)
[2019-03-02 07:40] LABS: BASOPHILS % (AUTO) 0.3 % (0.0-2.0); EOSINOPHILS # (AUTO) 0.1 K/uL (0.0-0.7); EOSINOPHILS % (AUTO) 0.4 % (0.0-7.0); HEMATOCRIT 43.7 % (36.7-47.1); HEMOGLOBIN 14.7 g/dL (12.5-16.3); LYMPHOCYTES % (AUTO) 29.5 % (20.5-51.5); MEAN CORPUSCULAR HEMOGLOBIN 32.4 uug (23.8-33.4); MEAN CORPUSCULAR HGB CONC 34 g/dL (32.5-36.3); MEAN CORPUSCULAR VOLUME 96.2 fL (73.0-96.2); MONOCYTES # (AUTO) 1.3 K/uL (2.0-10.0); MONOCYTES % (AUTO) 9.7 % (0.0-11.0); NEUTROPHILS # (AUTO) 8.1 K/uL (1.8-8.9); NEUTROPHILS % (AUTO) 60.1 % (38.5-71.5); RED BLOOD CELL COUNT(AUTO) 4.54 MIL/uL (4.06-5.63); WHITE BLOOD COUNT (AUTO) 13.6 K/uL (3.6-10.2)
[2019-03-02 07:57] VITALS: BP 156/99
[2019-03-02] MEDS: GABAPENTIN 300 MG CAPSULE PO SCH ×3 (08:04→16:27)
[2019-03-02] MEDS: OLANZAPINE 2.5 MG TABLET PO SCH ×2 (08:04→13:24)
[2019-03-02] MEDS: predniSONE 20 MG TABLET PO SCH (08:04)
[2019-03-02] MEDS: METOPROLOL TARTRATE 25 MG TABLET PO SCH ×2 (08:05→20:46)
[2019-03-02] MEDS: NICOTINE 21 MG/24HR PATCH TD SCH (08:05)
[2019-03-02 08:45] LABS: PLATELET COUNT (AUTO) 289 K/uL (152-348)
[2019-03-02 08:47] LABS: EOSINOPHILS % (MANUAL) 1 % (0-8); LYMPHOCYTES % (MANUAL) 31 % (20-40); MONOCYTES % (MANUAL) 11 % (2-10); NEUTROPHILS % (MANUAL) 57 % (42-75)
[2019-03-02 09:46] LABS: *BILIRUBIN,URIN NEGATIVE (NEGATIVE); *BLOOD, URINE NEGATIVE (NEGATIVE); *CLARITY,URINE CLEAR (CLEAR); *COLOR,URINE YELLOW (YELLOW); *KETONES,URINE NEGATIVE (NEGATIVE); *UROBILINOGEN,URINE 0.2 E.U./dl (NORMAL); LEUKOCYTE ESTERASE ,URINE NEGATIVE (NEGATIVE); NITRITE, URINE NEGATIVE (NEGATIVE); PH,URINE 6.5 (5.0-8.0); UGLUCOSE NEGATIVE (NEGATIVE)
--- NOTE | 2019-03-02 10:13 | NUR ---
GPS: received patien pacing in the nursing station, rambling and constant redirection were needed, patient compliant with medication and ate his breakfast, seen have his has fecal matter all over his pants , ask to change pants however patient became combative and argumentative, ask to take shower instead to clean up , patient agitated after his shower called and spoke with production line manager Psychiatrist this morning with orders for IM shot, orders verify and carried out,patient tolerated the procedure, will continue monitor behavior
[2019-03-02 17:05] VITALS: BP 108/60
--- NOTE | 2019-03-02 18:36 | NUR ---
patient remain calm in his room most of the time , will continue monitor
[2019-03-02 20:16] VITALS: BP 102/54
[2019-03-02] MEDS: OLANZAPINE 5 MG TABLET PO SCH (20:47)
[2019-03-03 07:15] LABS: BASOPHILS # (AUTO) 0.1 K/uL (0.0-8.0); BASOPHILS % (AUTO) 0.8 % (0.0-2.0); EOSINOPHILS % (AUTO) 0.4 % (0.0-7.0); HEMATOCRIT 41.8 % (36.7-47.1); HEMOGLOBIN 13.9 g/dL (12.5-16.3); LYMPHOCYTES # (AUTO) 3.4 K/uL (20.0-40.0); LYMPHOCYTES % (AUTO) 27.7 % (20.5-51.5); MEAN CORPUSCULAR HEMOGLOBIN 32.3 uug (23.8-33.4); MEAN CORPUSCULAR HGB CONC 33 g/dL (32.5-36.3); MEAN CORPUSCULAR VOLUME 97.3 fL (73.0-96.2); MONOCYTES # (AUTO) 1.2 K/uL (2.0-10.0); MONOCYTES % (AUTO) 9.6 % (0.0-11.0); NEUTROPHILS # (AUTO) 7.4 K/uL (1.8-8.9); NEUTROPHILS % (AUTO) 61.5 % (38.5-71.5); WHITE BLOOD COUNT (AUTO) 12.1 K/uL (3.6-10.2)
[2019-03-03 07:42] LABS: BILIRUBIN,TOTAL 0.5 mg/dL (0.2-1.0); CREATININE 0.9 mg/dL (0.6-1.3); POTASSIUM 3.9 mmol/L (3.5-5.1); TOTAL PROTEIN, SERUM 6.8 g/dL (6.4-8.2)
[2019-03-03 08:05] VITALS: BP 149/83
[2019-03-03] MEDS: predniSONE 20 MG TABLET PO SCH (08:05)
[2019-03-03] MEDS: OLANZAPINE 2.5 MG TABLET PO SCH ×2 (08:05→12:03)
[2019-03-03] MEDS: METOPROLOL TARTRATE 25 MG TABLET PO SCH ×2 (08:05→20:48)
[2019-03-03] MEDS: GABAPENTIN 300 MG CAPSULE PO SCH ×3 (08:05→16:06)
[2019-03-03] MEDS: NICOTINE 21 MG/24HR PATCH TD SCH (08:05)
[2019-03-03 08:19] LABS: PLATELET COUNT (AUTO) 207 K/uL (152-348)
[2019-03-03 16:53] VITALS: BP 144/71
[2019-03-03] MEDS: HYDROCODONE/APAP 5-325MG TABLET PO PRN (16:53)
[2019-03-03] MEDS: LORAZEPAM 0.5 MG TABLET PO PRN (19:52)
[2019-03-03 20:00] VITALS: BP 129/82
--- NOTE | 2019-03-03 20:00 | NUR ---
RECEIVED PATIENT IN THE DAY ROOM. HE IS NOTED A/O 2, FORGETFUL, EASILY IRRITABLE, TENS, DEMANDING AND ANGRY AT TIMES. HE CONTINUE FOCUS ON FOOD AND EATING. PT REQUIRES MULTIPLE REDIRECTION. ATIVAN 0.5 MG WAS GIVEN FOR ANXIETY. SNACKS HAS BEEN GIVEN TO PATIENT. PATIENT IS REASSURED FOR HIS SAFETY, SAFETY AND FALL PRECAUTION IN PLACE. V/S STABLE. WILL CONTINUE TO MONITOR.
[2019-03-03] MEDS: OLANZAPINE 5 MG TABLET PO SCH (20:47)
[2019-03-03] MEDS: TEMAZEPAM 7.5 MG CAPSULE PO PRN (23:08)
--- NOTE | 2019-03-04 00:25 | NUR ---
PATIENT NOTED AWAKE AND AT THE NURSING STATION. HE IS NOTED HYPERVERBAL, IRRITABLE, DEMANDING AND BELLIGERENT. SECURITY STAFF WAS CALLED. PT REQUIRED MULTIPLE REDIRECTIONS BY SECURITY AND NURSING STAFF AND HE WAS ABLE TO CALM DOWN AND WHEN BACK TO HIS ROOM. WILL CONTINUE TO MONITOR.
[2019-03-04 07:30] VITALS: BP 143/87
[2019-03-04 08:09] VITALS: BP 143/87
[2019-03-04] MEDS: METOPROLOL TARTRATE 25 MG TABLET PO SCH (08:09)
[2019-03-04] MEDS: GABAPENTIN 300 MG CAPSULE PO SCH ×2 (08:09→12:08)
[2019-03-04] MEDS: NICOTINE 21 MG/24HR PATCH TD SCH (08:09)
[2019-03-04] MEDS: OLANZAPINE 2.5 MG TABLET PO SCH ×2 (08:09→12:08)
--- NOTE | 2019-03-04 08:09 | NUR ---
Social Work Note/Discharge: Patient will be discharged to group home facility to [facility] [place] [address] ([phone]) via Ambulance transportation. Patient will be transported via Ambulance at 12:00pm. Bag Shop Worker spoke with JOMAR, Cdl B Driver ([phone]) who stated patient will be accepted at facility today. Patient is alert and oriented x2-3 and is not able to plan for self-care at this time but is willing to continue to accept care at the facility. Patient denies suicidal or homicidal ideation. Patient is aware and agreeable with discharge planspatient has no supportive contacts provided. Patient presents with normal mood and congruent affect. Patient will follow-up at the facility with Psychiatrist Dr. Morales and Cytogeneticist Dr. Baptiste at [facility]3].
[2019-03-04] MEDS: HYDROCODONE/APAP 5-325MG TABLET PO PRN (08:21)
[2019-03-04] MEDS ORDERED: predniSONE 50 MG TABLET PO SCH (09:00)
[2019-03-04] MEDS ORDERED: predniSONE 20 MG TABLET PO SCH (09:00)
[2019-03-04 09:31] LABS: BILIRUBIN,TOTAL 0.8 mg/dL (0.2-1.0); POTASSIUM 3.6 mmol/L (3.5-5.1); TOTAL PROTEIN, SERUM 7.4 g/dL (6.4-8.2)
[2019-03-04 09:41] LABS: BASOPHILS % (AUTO) 0.4 % (0.0-2.0); EOSINOPHILS % (AUTO) 0.3 % (0.0-7.0); HEMATOCRIT 44.9 % (36.7-47.1); HEMOGLOBIN 14.9 g/dL (12.5-16.3); LYMPHOCYTES # (AUTO) 3.7 K/uL (20.0-40.0); MEAN CORPUSCULAR HEMOGLOBIN 32.3 uug (23.8-33.4); MEAN CORPUSCULAR HGB CONC 33 g/dL (32.5-36.3); MEAN CORPUSCULAR VOLUME 97.3 fL (73.0-96.2); MONOCYTES # (AUTO) 0.9 K/uL (2.0-10.0); MONOCYTES % (AUTO) 8.5 % (0.0-11.0); NEUTROPHILS % (AUTO) 55.8 % (38.5-71.5); RED BLOOD CELL COUNT(AUTO) 4.61 MIL/uL (4.06-5.63); WHITE BLOOD COUNT (AUTO) 10.7 K/uL (3.6-10.2)
[2019-03-04 09:52] LABS: PLATELET COUNT (AUTO) 95 K/uL (152-348)
[2019-03-04] MEDS: ACETAMINOPHEN 325 MG TABLET PO PRN (10:26)
[2019-03-04] MEDS: LORAZEPAM 0.5 MG TABLET PO PRN (10:26)
[2019-03-04 10:29] LABS: LYMPHOCYTES % (MANUAL) 31 % (20-40); MONOCYTES % (MANUAL) 6 % (2-10); NEUTROPHILS % (MANUAL) 63 % (42-75)
--- NOTE | 2019-03-04 11:08 | NUR ---
received patient awake, alert and oriented in his assigned bed. Bed is in low and locked position. Patient is independent with ADL's and self care.
[2019-03-04] MEDS: MAG HYDROX/AL HYDROX/SIMETH 30 ML LIQUID UDC PO PRN (15:07)
--- NOTE | 2019-03-04 15:30 | NUR ---
GPS: patient discharged to [facility], patient received home medication instruction, patient denies SI and HI, calm and cooperative, made aware of the transfer, transferred via [facility]
== END 2019-03-04 15:00 | DRG 885 ==
LOC: GPS 17:57
PROVIDERS: ADMIT Psychiatry & Neurology Psychosomatic Medicine
DX: F25.9 Schizoaffective disorder, unspecified (principal); B19.20 Unspecified viral hepatitis C without hepatic coma; E44.1 Mild protein-calorie malnutrition; Z59.0 Homelessness; F10.10 Alcohol abuse, uncomplicated; T38.0X5A Adverse effect of glucocorticoids and synthetic analogues, initial encounter; Y92.230 Patient room in hospital as the place of occurrence of the external cause; D72.829 Elevated white blood cell count, unspecified; F17.210 Nicotine dependence, cigarettes, uncomplicated; K70.9 Alcoholic liver disease, unspecified; Z79.899 Other long term (current) drug therapy; I10 Essential (primary) hypertension; G89.29 Other chronic pain; M54.9 Dorsalgia, unspecified; D69.59 Other secondary thrombocytopenia; F09 Unspecified mental disorder due to known physiological condition; Z87.820 Personal history of traumatic brain injury
CPT/HCPCS: 36415; 70030-TC; 85025; A4663; J2060; J2358; J7512